=== PATIENT | male | born 1980 | race Caucasian/White ===

== ENCOUNTER → 2020-05-11 | Outpatient (CLI) | payer MEDICAID | LOC: COL.RAD 09:57 | DX: C11.8 Malignant neoplasm of overlapping sites of nasopharynx (principal); C79.51 Secondary malignant neoplasm of bone; J84.10 Pulmonary fibrosis, unspecified; J32.3 Chronic sphenoidal sinusitis; H74.8X2 Other specified disorders of left middle ear and mastoid; R59.0 Localized enlarged lymph nodes | CPT/HCPCS: A9585; Q9967 ==